=== PATIENT | male | born 1990 | race Caucasian/White ===

== ENCOUNTER 2017-11-26 19:23 | Emergency (ER) | payer SELFPAY ==
[~2017-11-26] VITALS: Ht 172.7 cm; Wt 136.1 kg
[2017-11-26 19:43] VITALS: BP 118/76
[2017-11-26] MEDS ORDERED: IBUPROFEN 600 MG TABLET PO ONE ×2 (19:53→20:00)
== END 2017-11-26 20:04 | disposition home or self-care (01) ==
LOC: ER 19:24
DX: S40.012A Contusion of left shoulder, initial encounter (principal); J45.909 Unspecified asthma, uncomplicated; V49.49XA Driver injured in collision with other motor vehicles in traffic accident, initial encounter; Y93.89 Activity, other specified; Y92.413 State road as the place of occurrence of the external cause; Y99.8 Other external cause status
CPT/HCPCS: 99282; A4606; Z7610